=== PATIENT | female | born 2000 | race African-American/Black ===

== ENCOUNTER 2021-01-15 02:00 | Emergency (ER) | payer OTHER ==
[~2021-01-15 02:00] MED LIST: BACLOFEN 10MG T10 MG PO; NAPROSYN500 MG PO
[2021-01-15 03:03] LABS: BASOPHIL 0.5 % (0-2); EOSINOPHIL 2.6 % (0-5); HCT 34.5 % (37.0-47.0); HGB 11.4 g/dl (12.5-16.0); MCH 30.9 pg (25.0-31.0); MCV 93.5 fL (78.0-100.0); MONOCYTE 4.5 % (0-12); MPV 10.3 fL (6.0-9.5); NEUTROPHIL 40.1 % (41-80); NRBC 0; PLT 310 K/uL (150-400); RBC 3.69 M/uL (4.20-5.40); RDW 12.4 % (11.5-14.0); WBC 10.8 K/uL (4.0-10.5)
[2021-01-15 03:03] LABS: AMPHETAMINES NEGATIVE (NEGATIVE); BARBITURATES NEGATIVE (NEGATIVE); ECSTASY (MDMA) NEGATIVE (NEGATIVE); MARIJUANA (THC) POSITIVE (NEGATIVE); METHADONE NEGATIVE (NEGATIVE); OPIATES NEGATIVE (NEGATIVE); OXYCODONE NEGATIVE (NEGATIVE)
[2021-01-15 03:04] LABS: LYMPHOCYTE 51.7 % (15-48)
[2021-01-15 03:11] LABS: ALBUMIN 3.5 g/dL (3.4-5.0); BILIRUBIN - TOTAL 0.2 mg/dL (0.2-1.0); BUN/CREAT RATIO (CALC) 17.7 RATIO; CREATININE 0.79 mg/dL (0.51-0.95); GLOBULIN (CALCULATION) 3.7 g/dL; POTASSIUM 3.1 mmol/L (3.5-5.1); TOTAL PROTEIN 7.2 g/dL (6.4-8.2)
== END 2021-01-15 06:52 | disposition home or self-care (01) ==
LOC: FER 02:00
PROVIDERS: Internal Medicine
DX: F10.129 Alcohol abuse with intoxication, unspecified (principal); Y90.7 Blood alcohol level of 200-239 mg/100 ml
CPT/HCPCS: 36415; 80053; 80305; 85025; G0480; J3411; J3475; J7030